=== PATIENT | male | born 1955 ===

== ENCOUNTER 2016-11-06 19:42 | Inpatient (IN) | payer BC ==
[~2016-11-06] VITALS: Ht 195.6 cm; Wt 100.2 kg
[~2016-11-06 19:42] MED LIST: ALFUZOSIN HCL10 MG PO; BUPROPION XL300 MG ORAL; FLONASE ALLERG9.9 ML NS; LEVOTHYROXINE25 MCG ORAL; MODAFINIL100 MG ORAL; SINGULAIR10 MG ORAL; THEOPHYLLINE400 MG PO
[2016-11-06] MEDS ORDERED: Ipratropium 0.02% Inh Soln 2.5ml UD HHN ONE (19:45)
[2016-11-06] MEDS ORDERED: Solu-MEDROL 125mg Inj IVP ONE (19:45)
[2016-11-06] MEDS ORDERED: Morphine Sulfate 4mg/ml Inj IVP ONE ×2 (19:45→21:00)
[2016-11-06] MEDS ORDERED: Albuterol ud Inhalation HHN ONE (19:45)
[2016-11-06] MEDS ORDERED: Azithromycin 500 MG in NS 250 ML IV ONE (19:45)
[2016-11-06] MEDS ORDERED: Azithromycin Inj IV ONE (19:51)
[2016-11-06] MEDS ORDERED: NS 50 ML IV ONE (19:52)
[2016-11-06] MEDS ORDERED: NS 250 ML ONE (19:52)
[2016-11-06 20:06] LABS: BASOPHILS % (AUTO) 0.4 % (0.0-2.0); EOSINOPHILS % (AUTO) 2.1 % (0.0-3.0); LYMPHOCYTES % (AUTO) 16.7 % (20.0-45.0); MEAN CORPUSCULAR HEMOGLOBIN 32.5 PG (27.0-31.0); MEAN CORPUSCULAR HGB CONC 33.1 G/DL (32.0-36.0); MEAN CORPUSCULAR VOLUME 98 FL (80-99); MEAN PLATELET VOLUME 6.3 FL (6.5-10.1); MONOCYTES % (AUTO) 11.9 % (1.0-10.0); NEUTROPHILS % (AUTO) 68.9 % (45.0-75.0); PLATELET COUNT 199 K/UL (150-450); RED CELL DISTRIBUTION WIDTH 11.8 % (11.6-14.8); WHITE BLOOD COUNT 14.8 K/UL (4.8-10.8)
[2016-11-06 20:23] LABS: TROPONIN I < 0.30 ng/mL (<=0.30)
[2016-11-06 20:27] LABS: ALANINE AMINOTRANSFERASE 41 U/L (3-41); ALBUMIN/GLOBULIN RATIO 1.2 (1.0-2.7); ANION GAP 13 (5-15); ASPARTATE AMINO TRANSFERASE 48 U/L (5-40); CALCIUM 8.5 mg/dL (8.6-10.2); CARBON DIOXIDE 25 mEQ/L (20-30); CHLORIDE 101 mEQ/L (98-107); GLOMERULAR FILTRATION RATE > 60 mL/min (>60); HEMOLYSIS 6; POTASSIUM 4.1 mEQ/L (3.4-4.9); SODIUM 139 mEQ/L (135-145); TOTAL PROTEIN 6.4 g/dL (6.6-8.7)
--- NOTE | 2016-11-06 20:28 | Emergency Room Report ---
History of Present Illness General Chief Complaint: Chest Pain Source: Patient, EMS Present Illness HPI Patient presents with left-sided chest pain severe. Pleuritic. He's been coughing for several days and wheezing. History of asthma. Has also had fevers and chills. He denies any productive phlegm. He believes he strained his chest a few days ago. He does not smoke. He is a diabetic but does not have high blood pressure. He's never had pain like this before. He's been using his inhaler. This is not his worst attack. Pain 9-10/10, radiate to side and back, not to neck. No headache, dizziness, ear pain, NVD, dysuria. Sugars have been controlled. Allergies: Coded Allergies: DOXYCYCLINE (Verified Allergy, Unknown, 11/06/16) TETRACYCLINE (Unverified Allergy, Unknown, 11/06/16) Patient History Past Medical History: see triage record, asthma, other - H/O non-Hodgkin's lymphoma - 5 years ago Social History: Denies: smoking Reviewed Nursing Documentation: PMH: Agreed, PSxH: Agreed Nursing Documentation-PMH Hx Cardiac Problems: No Hx Asthma: Yes Hx Diabetes: Yes Hx Cancer: No Hx Gastrointestinal Problems: Yes History Of Psychiatric Problem: Yes - Depression Hx Neurological Problems: No Review of Systems All Other Systems: negative except mentioned in HPI Physical Exam Vital Signs Date Time Temp Pulse Resp B/P Pulse Ox O2 Delivery O2 Flow Rate FiO2 11/06/16 19:30 68 16 134/84 96 Room Air Sp02 EP Interpretation: reviewed, normal General Appearance: well appearing, GCS 15, mild distress Head: normocephalic, atraumatic Eyes: bilateral eye PERRL, bilateral eye normal inspection ENT: moist mucus membranes Neck: supple Respiratory: rales - L, wheezing, expiration Cardiovascular #1: regular rate, rhythm Cardiovascular #2: 2+ radial (R) Gastrointestinal: normal inspection, normal bowel sounds, non tender, no mass, non-distended Musculoskeletal: back normal, gait/station normal, normal range of motion Neurologic: alert, oriented x3 - grossly normal neuro Skin: normal inspection, warm/dry Medical Decision Making Diagnostic Impression: Primary Impression: Pneumonia Qualified Codes: J18.9 - Pneumonia, unspecified organism Additional Impression: Bronchospasm, acute ER Course The patient presents with left chest pain which is pleuritic fevers cough wheezing. Differential includes pneumonia, bronchitis, asthma or pleurisy, PE amongst others. The patient needs emergent evaluation when EKG, chest x-ray, labs. The patient will be treated with IV hydration and and analgesia. Also he 'll get breathing treatments and also antibiotics. Due to the pleuritic nature of the chest pain a d-dimer be obtained. D-dimer was positive. CT angiogram was ordered. Chest x-ray was remarkable for left-sided infiltrate and effusion. The patient was improved with breathing treatments and treatment for pain. CTA - no PE. Patient improved but needs admission for IV antibiotics and bronchodilators. Admitted med Dr. Porras. Labs Test 11/06/16 19:45 11/06/16 21:55 White Blood Count 14.8 K/UL (4.8-10.8) Red Blood Count 4.60 M/UL (4.70-6.10) Hemoglobin 15.0 G/DL (14.2-18.0) Hematocrit 45.2 % (42.0-52.0) Mean Corpuscular Volume 98 FL (80-99) Mean Corpuscular Hemoglobin 32.5 PG (27.0-31.0) Mean Corpuscular Hemoglobin Concent 33.1 G/DL (32.0-36.0) Red Cell Distribution Width 11.8 % (11.6-14.8) Platelet Count 199 K/UL (150-450) Mean Platelet Volume 6.3 FL (6.5-10.1) Neutrophils (%) (Auto) 68.9 % (45.0-75.0) Lymphocytes (%) (Auto) 16.7 % (20.0-45.0) Monocytes (%) (Auto) 11.9 % (1.0-10.0) Eosinophils (%) (Auto) 2.1 % (0.0-3.0) Basophils (%) (Auto) 0.4 % (0.0-2.0) Prothrombin Time 10.0 SEC (9.30-11.50) Prothromb Time International Ratio 1.0 (0.9-1.1) Activated Partial Thromboplast Time 31 SEC (23-33) D-Dimer 1098 ng/mL (<500) Sodium Level 139 mEQ/L (135-145) Potassium Level 4.1 mEQ/L (3.4-4.9) Chloride Level 101 mEQ/L (98-107) Carbon Dioxide Level 25 mEQ/L (20-30) Anion Gap 13 (5-15) Blood Urea Nitrogen 15 mg/dL (7-23) Creatinine 1.0 mg/dL (0.7-1.2) Estimat Glomerular Filtration Rate > 60 mL/min (>60) Glucose Level 123 mg/dL (74-106) Lactic Acid Level 1.70 mmol/L (0.66-2.22) Calcium Level 8.5 mg/dL (8.6-10.2) Total Bilirubin 0.4 mg/dL (0.0-1.2) Aspartate Amino Transf (AST/SGOT) 48 U/L (5-40) Alanine Aminotransferase (ALT/SGPT) 41 U/L (3-41) Alkaline Phosphatase 56 U/L (40-129) Total Creatine Kinase 482 U/L (38-174) Troponin I < 0.30 ng/mL (<=0.30) Pro-B-Type Natriuretic Peptide 380 pg/mL (0-125) Total Protein 6.4 g/dL (6.6-8.7) Albumin 3.6 g/dL (3.5-5.2) Globulin 2.8 g/dL Albumin/Globulin Ratio 1.2 (1.0-2.7) Urine Color Yellow Urine Appearance Clear Urine pH 5 (4.5-8.0) Urine Specific [place] 1.015 (1.005-1.035) Urine Protein 2+ (NEGATIVE) Urine Glucose (UA) 2+ (NEGATIVE) Urine Ketones Negative (NEGATIVE) Urine Occult Blood 1+ (NEGATIVE) Urine Nitrite Negative (NEGATIVE) Urine Bilirubin Negative (NEGATIVE) Urine Urobilinogen Normal MG/DL (0.0-1.0) Urine Leukocyte Esterase 1+ (NEGATIVE) Urine RBC 2-4 /HPF (0 - 0) Urine WBC 2-4 /HPF (0 - 0) Urine Squamous Epithelial Cells None /LPF (NONE/OCC) Urine Bacteria Few /HPF (NONE) EKG Diagnostic Results Rate: normal Rhythm: NSR ST Segments: no acute changes Rhythm Strip Diag. Results EP Interpretation: yes Rhythm: NSR, no PVC's, no ectopy Chest X-Ray Diagnostic Results EP Interpretation: Yes Findings: other - LLL infiltrate and effusion Number of Views: 2 CT/MRI/US Diagnostic Results CT/MRI/US Diagnostic Results : Imaging Test Ordered: CTA lungs Impression No PE, infiltrate L with small effusion Impression: Limited exam due to suboptimal opacification of the pulmonary arteries. No definite large vessel pulmonary embolus, but small peripheral blood cannot be confidently ruled out Nonspecific parenchymal consolidation in the left lung base, possibly representing pneumonia Bilateral basilar atelectatic changes and mild bronchial wall thickening and minimal bronchiectasis Small to moderate left-sided pleural effusion Incidental finding of minimal bilateral gynecomastia Last Vital Signs Date Time Temp Pulse Resp B/P Pulse Ox O2 Delivery O2 Flow Rate FiO2 11/06/16 20:14 78 23 100 Room Air 11/06/16 19:30 134/84 Status: improved Disposition: ADMITTED INPATIENT Condition: Serious Buzz Beasley M.D. Nov 06, 2016 20:28
[2016-11-06 20:30] VITALS: BP 117/76
[2016-11-06 22:21] VITALS: BP 122/69
[2016-11-06] MEDS ORDERED: PSEUDOEPHEDRINE30 MG PO (22:23)
[2016-11-06] MEDS ORDERED: MUCINEX100 MG PO (22:23)
[2016-11-06] MEDS ORDERED: LORATADINE10 M2 PO (22:24)
[2016-11-06] MEDS ORDERED: ALBUTEROL2.5 MG/3 M INH (22:24)
[2016-11-06] MEDS ORDERED: ADVAIR 100-501 EACH INH (22:25)
[2016-11-06] MEDS ORDERED: PRILOSEC OTC20 MG ORAL (22:25)
[2016-11-06 22:33] LABS: APPEARANCE,URINE CLEAR; KETONES,URINE NEGATIVE (NEGATIVE); LEUKOCYTE ESTERASE ,URINE 1+ (NEGATIVE); NITRITE,URINE NEGATIVE (NEGATIVE); PH,URINE 5 (4.5-8.0); PROTEIN,URINE 2+ (NEGATIVE); UROBILINOGEN,URINE NORMAL MG/DL (0.0-1.0)
[2016-11-06 22:43] LABS: BACTERIA,URINE FEW /HPF
[2016-11-07] VITALS (7 sets, daily range): BP systolic 113–138; BP diastolic 63–87
[2016-11-07] MEDS ORDERED: Morphine Sulfate 4mg/ml Inj IVP ONE (01:00)
[2016-11-07] MEDS ORDERED: DuoNeb 0.5-3(2.5)mg/3ml neb HHN PRN (02:45)
[2016-11-07] MEDS: DuoNeb 0.5-3(2.5)mg/3ml neb HHN SCH ×6 (03:24→23:24)
[2016-11-07] MEDS: Morphine Sulfate 4mg/ml Inj IVP PRN ×7 (04:32→23:45)
[2016-11-07] MEDS: Solu-MEDROL 40mg Inj IVP SCH ×3 (06:44→21:31)
[2016-11-07] MEDS ORDERED: Levothyroxine 25mcg tab ORAL SCH ×2 (09:00)
[2016-11-07] MEDS ORDERED: Modafinil 100mg tab ORAL SCH (09:00)
--- NOTE | 2016-11-07 09:00 | Diagnostic Imaging Report ---
ndication: Chest pain and elevated d-dimer Technique: IV administration nonionic contrast. Spiral acquisitions obtained from the lung bases to the lung apices. Multiplanar and 3-D reconstructions were generated. Total dose length product 900 mGycm. CTDIvol(s) 12, 63, 25 mGy Comparison: None Findings: Pulmonary arterial perfusion is suboptimal, precluding exclusion of small distal pulmonary emboli. No gross large vessel central pulmonary emboli are evident. No evidence of thoracic aortic aneurysm or dissection. No pulmonary arterial dilatation or right ventricular dilatation is evident. There is a small to moderate size left-sided pleural effusion. There resulting compressive atelectatic changes of the left lower lobe. There are posterior dependent atelectatic changes of the right lower lobe. There is bronchial wall thickening and mild bronchiectasis at the right lung base. There is some nonspecific parenchymal consolidation at the left lung base. The upper lobes and right middle lobe are clear. No mediastinal or hilar mass or adenopathy. The heart size is normal. No pericardial effusion. No axillary or chest wall mass or adenopathy. Bones are unremarkable. There is mild bilateral gynecomastia The included upper abdominal viscera are unremarkable. Impression: Limited exam due to suboptimal opacification of the pulmonary arteries. No definite large vessel pulmonary embolus, but small peripheral blood cannot be confidently ruled out Nonspecific parenchymal consolidation in the left lung base, possibly representing pneumonia Bilateral basilar atelectatic changes and mild bronchial wall thickening and minimal bronchiectasis Small to moderate left-sided pleural effusion Incidental finding of minimal bilateral gynecomastia The CT scanner at [facility] is accredited by the [employer] and the scans are performed using protocols designed to limit radiation exposure to as low as reasonably achievable to attain images of sufficient resolution adequate for diagnostic evaluation.
[2016-11-07] MEDS: Advair 100/50 Inhaler - 14 dose INH SCH ×2 (09:18→19:31)
[2016-11-07] MEDS: Levofloxacin 500mg tab ORAL SCH (09:20)
[2016-11-07] MEDS: Montelukast 10mg tablet ORAL SCH (09:20)
[2016-11-07] MEDS: BuPROPion XL 300mg tab ORAL SCH (09:20)
[2016-11-07] MEDS: Heparin 5000 units/ml inj SUBQ SCH ×2 (09:21→20:32)
--- NOTE | 2016-11-07 10:12 | Diagnostic Imaging Report ---
Indication: COUGH and chest pain Technique: One view of the chest Comparison: none Findings: History is suboptimal, with crowding of vascular markings and left basilar atelectatic changes.. There is suggestion of at least mild interstitial congestion. Left costophrenic angle is blunted, possibly reflecting basilar atelectasis and/or a small amount of pleural fluid the heart size is normal Impression: Small left pleural effusion Mild congestive changes Hypoventilatory exam with bibasilar atelectasis. This agrees with the preliminary interpretation provided by the emergency room physician
[2016-11-07] MEDS: Flonase Nasal Inhaler 16gm NASAL SCH ×2 (10:35→17:15)
[2016-11-07] MEDS: cefTRIAXone 1 GM in D5W 50 ML IVPB SCH (20:30)
[2016-11-08] VITALS: BP 139/84
[2016-11-08] MEDS: DuoNeb 0.5-3(2.5)mg/3ml neb HHN SCH ×6 (03:57→23:04)
[2016-11-08 04:00] VITALS: BP 106/57
[2016-11-08] MEDS: Solu-MEDROL 40mg Inj IVP SCH ×3 (06:12→21:41)
[2016-11-08] MEDS: Levothyroxine 125mcg tab ORAL SCH (06:12)
[2016-11-08] MEDS: Morphine Sulfate 4mg/ml Inj IVP PRN ×3 (06:20→21:42)
[2016-11-08 08:00] VITALS: BP 134/78
[2016-11-08] MEDS: Advair 100/50 Inhaler - 14 dose INH SCH ×2 (09:14→21:09)
[2016-11-08] MEDS: Levofloxacin 500mg tab ORAL SCH (09:55)
[2016-11-08] MEDS: BuPROPion XL 300mg tab ORAL SCH (09:55)
[2016-11-08] MEDS: Heparin 5000 units/ml inj SUBQ SCH ×2 (10:03→20:35)
[2016-11-08] MEDS: Montelukast 10mg tablet ORAL SCH (10:05)
[2016-11-08] MEDS: Flonase Nasal Inhaler 16gm NASAL SCH ×2 (10:06→17:25)
--- NOTE | 2016-11-08 10:37 | General Progress Note ---
Assessment/Plan Assessment/Plan pneumonia pleuritic pain low thyroid PLAN care noted follow up chest XR oxygen follow up for change Subjective Allergies: Coded Allergies: DOXYCYCLINE (Verified Allergy, Unknown, 11/06/16) TETRACYCLINE (Unverified Allergy, Unknown, 11/06/16) Subjective comfortable minimal congestion Objective Last 24 Hour Vital Signs Date Time Temp Pulse Resp B/P Pulse Ox O2 Delivery O2 Flow Rate FiO2 11/08/16 07:56 95 Room Air 11/08/16 07:56 82 16 98 Room Air 11/08/16 07:56 Room Air 11/08/16 07:56 82 14 98 Room Air 11/08/16 04:00 76 11/08/16 04:00 97.5 79 18 106/57 92 Room Air 11/08/16 03:10 85 17 100 Nasal Cannula 2.0 28 11/08/16 03:00 79 16 96 Nasal Cannula 2.0 28 11/08/16 00:00 100 11/08/16 00:00 98.1 85 18 139/84 97 Nasal Cannula 2.0 11/07/16 23:33 87 17 100 Nasal Cannula 2.0 28 11/07/16 23:24 86 17 95 Nasal Cannula 2.0 28 11/07/16 20:00 97.9 102 21 123/72 95 Nasal Cannula 3.0 11/07/16 20:00 88 11/07/16 20:00 97.1 82 21 127/74 92 Nasal Cannula 3.0 11/07/16 19:40 81 18 100 Nasal Cannula 2.0 28 11/07/16 19:30 80 17 96 Nasal Cannula 2.0 28 11/07/16 19:29 96 Nasal Cannula 2.0 11/07/16 19:29 Nasal Cannula 2.0 28 11/07/16 16:00 82 11/07/16 16:00 97.7 87 18 138/87 93 Room Air 11/07/16 15:49 83 18 100 Nasal Cannula 2.0 28 11/07/16 15:40 80 16 94 Room Air 21 11/07/16 12:22 97.2 93 18 123/72 95 Nasal Cannula 2.0 11/07/16 12:00 101 11/07/16 11:30 78 18 100 Nasal Cannula 2.0 28 11/07/16 11:20 72 18 98 Nasal Cannula 2.0 28 Intake and Output 11/07/16 11/08/16 19:00 07:00 Intake Total 480 ml 340 ml Balance 480 ml 340 ml Intake Oral 480 ml 240 ml IV Total 100 ml # Voids 2 2 Labs Test 11/06/16 19:45 11/06/16 21:55 White Blood Count 14.8 K/UL (4.8-10.8) Red Blood Count 4.60 M/UL (4.70-6.10) Hemoglobin 15.0 G/DL (14.2-18.0) Hematocrit 45.2 % (42.0-52.0) Mean Corpuscular Volume 98 FL (80-99) Mean Corpuscular Hemoglobin 32.5 PG (27.0-31.0) Mean Corpuscular Hemoglobin Concent 33.1 G/DL (32.0-36.0) Red Cell Distribution Width 11.8 % (11.6-14.8) Platelet Count 199 K/UL (150-450) Mean Platelet Volume 6.3 FL (6.5-10.1) Neutrophils (%) (Auto) 68.9 % (45.0-75.0) Lymphocytes (%) (Auto) 16.7 % (20.0-45.0) Monocytes (%) (Auto) 11.9 % (1.0-10.0) Eosinophils (%) (Auto) 2.1 % (0.0-3.0) Basophils (%) (Auto) 0.4 % (0.0-2.0) Prothrombin Time 10.0 SEC (9.30-11.50) Prothromb Time International Ratio 1.0 (0.9-1.1) Activated Partial Thromboplast Time 31 SEC (23-33) D-Dimer 1098 ng/mL (<500) Sodium Level 139 mEQ/L (135-145) Potassium Level 4.1 mEQ/L (3.4-4.9) Chloride Level 101 mEQ/L (98-107) Carbon Dioxide Level 25 mEQ/L (20-30) Anion Gap 13 (5-15) Blood Urea Nitrogen 15 mg/dL (7-23) Creatinine 1.0 mg/dL (0.7-1.2) Estimat Glomerular Filtration Rate > 60 mL/min (>60) Glucose Level 123 mg/dL (74-106) Lactic Acid Level 1.70 mmol/L (0.66-2.22) Calcium Level 8.5 mg/dL (8.6-10.2) Total Bilirubin 0.4 mg/dL (0.0-1.2) Aspartate Amino Transf (AST/SGOT) 48 U/L (5-40) Alanine Aminotransferase (ALT/SGPT) 41 U/L (3-41) Alkaline Phosphatase 56 U/L (40-129) Total Creatine Kinase 482 U/L (38-174) Troponin I < 0.30 ng/mL (<=0.30) Pro-B-Type Natriuretic Peptide 380 pg/mL (0-125) Total Protein 6.4 g/dL (6.6-8.7) Albumin 3.6 g/dL (3.5-5.2) Globulin 2.8 g/dL Albumin/Globulin Ratio 1.2 (1.0-2.7) Urine Color Yellow Urine Appearance Clear Urine pH 5 (4.5-8.0) Urine Specific [place] 1.015 (1.005-1.035) Urine Protein 2+ (NEGATIVE) Urine Glucose (UA) 2+ (NEGATIVE) Urine Ketones Negative (NEGATIVE) Urine Occult Blood 1+ (NEGATIVE) Urine Nitrite Negative (NEGATIVE) Urine Bilirubin Negative (NEGATIVE) Urine Urobilinogen Normal MG/DL (0.0-1.0) Urine Leukocyte Esterase 1+ (NEGATIVE) Urine RBC 2-4 /HPF (0 - 0) Urine WBC 2-4 /HPF (0 - 0) Urine Squamous Epithelial Cells None /LPF (NONE/OCC) Urine Bacteria Few /HPF (NONE) Height (Feet): 6 Height (Inches): 5.00 Weight (Pounds): 221 Objective WDWN NAD some rhonchi [id number] without MRG NABS nontender no HSM no CCE nonfocal RONALD OWENS Nov 08, 2016 10:37
[2016-11-08 12:00] VITALS: BP 139/84
[2016-11-08] MEDS: Docusate 100mg tablet NG SCH ×2 (14:16→14:17)
--- NOTE | 2016-11-08 15:07 | History and Physical Report ---
DATE OF ADMISSION: 11/06/2016 REASON FOR ADMISSION: Pneumonia. HISTORY OF PRESENT ILLNESS: This is a 61-year-old male with no known history of asthma. The patient complained of left-sided chest pain, pleuritic. He also has cough. The patient has sputum production. The patient has no fever or chills. Denies any ill contacts. Denies any recent travel. The patient presented to the emergency room and did undergone CT of the chest reveal pulmonary embolism, which was negative, but did have evidence of pneumonia. The patient is now admitted for further care and management. PAST MEDICAL HISTORY: The patient past medical history is notable for 1. Benign prostatic hyperplasia. 2. History of non-Hodgkin's lymphoma. 3. History of asthma. 4. History of chronic rhinitis. 5. History of depression. 6. History of hypothyroidism. MEDICATIONS: Reviewed and reconciled. ALLERGIES: Reviewed. SOCIAL HISTORY: Nonsmoker. Nondrinker. REVIEW OF SYSTEMS: Otherwise negative. PHYSICAL EXAMINATION: GENERAL: A well-developed male, comfortable at present. VITAL SIGNS: Stable and afebrile. The patient has saturation at two liters. LUNGS: With crackles over the left base otherwise clear. CARDIAC: S1 and S2. Regular rate and rhythm. ABDOMEN: Soft, nontender, and nondistended. EXTREMITIES: No cyanosis, clubbing, or edema. LABORATORY AND DIAGNOSTIC DATA: Chemistry is negative except for CK of 42. BNP 380. IMPRESSION: 1. Pneumonia, left-sided with pneumonic effusion. 2. History of chest pain. 3. Hypothyroidism. 4. Asthma. RECOMMENDATION: Resume home medications of theophylline and Solu-Medrol. Possible GI symptoms. Resume all other medication, IV antibiotics, and IV Rocephin. We will obtain ID evaluation. Levaquin. Follow x-ray to clearance and discharge home in stable condition. Dm Porras M.D. DR: MCKAY JOB#: [id number] CC: DIEUDONNE
[2016-11-08 16:00] VITALS: BP 133/86
[2016-11-08] MEDS ORDERED: NS 275ml ONE (17:56)
[2016-11-08] MEDS ORDERED: Tubing IV Secondary IV ONE (17:56)
[2016-11-08 20:00] VITALS: BP 130/71
[2016-11-08] MEDS: cefTRIAXone 1 GM in D5W 50 ML IVPB SCH (20:33)
[2016-11-09] VITALS: BP 121/90
[2016-11-09] MEDS: DuoNeb 0.5-3(2.5)mg/3ml neb HHN SCH ×2 (03:15→07:42)
[2016-11-09 04:00] VITALS: BP 129/79
[2016-11-09] MEDS: Levothyroxine 125mcg tab ORAL SCH (06:28)
[2016-11-09] MEDS: Solu-MEDROL 40mg Inj IVP SCH (06:28)
[2016-11-09 08:44] VITALS: BP 126/76
--- NOTE | 2016-11-09 08:51 | General Progress Note ---
Assessment/Plan Assessment/Plan pneumonia pleuritic pain low thyroid PLAN care noted follow up chest XR with some improvement dc home with bactrim and azithro outpatient follow up chest xr and clinical evaluation patient aware to return if symptoms worsen patient aware of need for close follow up and avoidance of ill contacts follow up for change Subjective Allergies: Coded Allergies: DOXYCYCLINE (Verified Allergy, Unknown, 11/06/16) TETRACYCLINE (Unverified Allergy, Unknown, 11/06/16) Subjective comfortable anxious to go home Objective Last 24 Hour Vital Signs Date Time Temp Pulse Resp B/P Pulse Ox O2 Delivery O2 Flow Rate FiO2 11/09/16 08:44 97.5 73 18 126/76 94 Room Air 11/09/16 07:45 72 18 96 Room Air 21 11/09/16 07:45 21 11/09/16 07:44 Room Air 21 11/09/16 07:44 96 Room Air 21 11/09/16 04:00 89 11/09/16 04:00 97.2 93 20 129/79 92 Room Air 11/09/16 03:24 82 12 100 Room Air 21 11/09/16 03:15 75 12 98 Room Air 11/09/16 00:00 97.7 98 20 121/90 94 Room Air 11/09/16 00:00 106 11/08/16 23:15 99 14 99 Room Air 21 11/08/16 23:05 91 14 96 Room Air 11/08/16 20:00 97.5 86 27 130/71 96 Room Air 11/08/16 20:00 85 11/08/16 19:36 88 14 100 Room Air 21 11/08/16 19:29 97 Room Air 21 11/08/16 19:29 Room Air 21 11/08/16 19:29 81 14 97 Room Air 11/08/16 16:00 97.5 91 18 133/86 91 11/08/16 16:00 87 11/08/16 15:24 88 16 98 Room Air 21 11/08/16 15:24 83 16 98 Room Air 11/08/16 14:51 97.2 11/08/16 12:40 80 11/08/16 12:00 97.2 84 19 139/84 84 11/08/16 11:36 80 15 97 Room Air 11/08/16 11:36 84 16 98 Room Air 21 Intake and Output 11/08/16 11/09/16 19:00 07:00 Intake Total 500 ml 940 ml Balance 500 ml 940 ml Intake Oral 500 ml 840 ml IV Total 100 ml # Voids 3 5 # Bowel Movements 1 Height (Feet): 6 Height (Inches): 5.00 Weight (Pounds): 221 Objective WDWN NAD some rhonchi overall improved [id number] without MRG NABS nontender no HSM no CCE nonfocal RONALD OWENS Nov 09, 2016 08:51
[2016-11-09] MEDS: Advair 100/50 Inhaler - 14 dose INH SCH (09:18)
[2016-11-09] MEDS: BuPROPion XL 300mg tab ORAL SCH (09:30)
[2016-11-09] MEDS: Flonase Nasal Inhaler 16gm NASAL SCH (09:35)
[2016-11-09] MEDS: Montelukast 10mg tablet ORAL SCH (09:36)
[2016-11-09] MEDS: Levofloxacin 500mg tab ORAL SCH (09:36)
[2016-11-09] MEDS: Docusate 100mg tablet NG SCH (09:36)
[2016-11-09] MEDS: Heparin 5000 units/ml inj SUBQ SCH (09:39)
--- NOTE | 2016-11-09 11:01 | Cardiology Report ---
APPROVED REPORT EKG Measurement Heart [id number] MN 136P2 [id number] Normal sinus rhythm Normal ECG
--- NOTE | 2016-11-09 11:47 | Consultation ---
DATE OF CONSULTATION: 11/09/2016 INFECTIOUS DISEASES CONSULTATION CONSULTING PHYSICIAN: Buddy Anguiano M.D. ATTENDING PHYSICIAN: Dm Porras M.D. REFERRING PHYSICIAN: Dm Porras M.D. REASON FOR CONSULTATION: Pneumonia. HISTORY OF PRESENTING ILLNESS: This is a very pleasant 61-year-old gentleman with history of benign prostatic hypertrophy, non-Hodgkin's lymphoma of the thyroid, and asthma, who came in with fever and chills, cough with productive sputum along with some shortness of breath and pain in his chest and in the ribs. He found to have a pneumonia and an Infectious Diseases consultation has been obtained for antibiotics. PAST MEDICAL HISTORY: 1. History of benign prostatic hyperplasia. 2. Non-Hodgkin's lymphoma of the thyroid, status post chemotherapy in remission. 3. Asthma. 4. Chronic rhinitis. 5. Depression. 6. Hypothyroidism. 7. History of hernia surgery. 8. History of abdominal plasty. 9. History of foot surgery. MEDICATIONS: Medications as an inpatient, he is on docusate, levothyroxine, ceftriaxone, Flonase, subcutaneous heparin, Levaquin, Wellbutrin, fluticasone, Singulair, Protonix, Solu-Medrol, albuterol, morphine, and Zofran. ALLERGIES: Allergies to tetracycline and doxycycline noted. SOCIAL HISTORY: He used to be a smoker. He does not smoke anymore. No history of alcohol or drug use. FAMILY HISTORY: Positive for heart problems in his father. REVIEW OF SYSTEMS: Respiratory: He had fever and chills, which is improved. He had a cough with some mucus. He has shortness of breath. He has pleuritic chest pain. Cardiac: No chest pain. No palpitations. No dizziness. No syncope. Gastrointestinal: He does have some nausea now. No vomiting, no abdominal pain or diarrhea. PHYSICAL EXAMINATION: VITAL SIGNS: Temperature of 97.5 degrees, T-max of 98.1 degrees, pulse of 72, respiratory of 19, blood pressure of 126/76, and O2 saturation of 96%. HEENT: Pupils are equally reactive to light and accommodation. Mouth appears clean without thrush. NECK: Supple. No adenopathy. No JVD. CARDIOVASCULAR: Regular rate and rhythm. No murmurs. LUNGS: Wheezing noted bilaterally. ABDOMEN: Soft and nontender. No organomegaly. EXTREMITIES: No cyanosis, no clubbing, no edema. LABORATORY DATA: White count 14.8 hemoglobin 15, hematocrit 35.2, MCV 98, platelet count of 199,000, and neutrophils of 68%. Sodium 139, potassium 4.1, chloride 101, bicarbonate 25, BUN 15, creatinine 1, glucose 123, and calcium 8.5. Total bilirubin 0.4. AST 48, ALT 41, and alkaline phosphatase 56. CK of 482. Troponin less than 0.3. Total protein 6.4. Albumin 3.6. UA showing 2-4 white cells. Sputum culture growing Staph aureus and normal respiratory mi. Influenza A on 11/06/2016 was negative. Blood cultures are negative from 11/06/2016. Chest x-ray showed small left-sided pleural effusion, mild congestion noted, bibasilar atelectasis noted. CT chest showing nonspecific parenchymal consolidation in the left lung base probably representing pneumonia, atelectasis and mild bronchial wall thickening and bronchiectasis noted small to moderate left-sided pleural effusion noted. ASSESSMENT: 1. This is a 61-year-old gentleman with history of asthma and non-Hodgkin's lymphoma of the thyroid, who comes in with a pneumonia with Staph aureus. 2. History of asthma. 3. Leukocytosis. PLAN: 1. Continue ceftriaxone. 2. Discontinue Levaquin. 3. We will start IV vancomycin. 4. We will follow up cultures and adjust antibiotics accordingly. I would like to thank, Dr. Porras for this consultation. Buddy Anguiano M.D. DR: Rodolfo JOB#: [id number] CC: Dm Porras M.D.; Fax#: [phone]
[2016-11-09 12:15] VITALS: BP 117/69
[2016-11-09] MEDS ORDERED: Vancomycin 1.5 GM in D5W 300 ML IVPB ONE (13:00)
[2016-11-09] MEDS ORDERED: Vancomycin 1gm/D5W 250ml IVPB SCH ×2 (22:00)
--- NOTE | 2016-11-11 10:49 | Discharge Summary ---
Discharge Summary Hospital Course Date of Admission Nov 06, 2016 at 21:29 Date of Discharge Nov 09, 2016 at 12:38 Admitting Diagnosis pneumonia HPI Odilon Oconnor is a 61 year old male who was admitted on Nov 06, 2016 at 21: 29 for Pneumonia Hospital Course [id number] Discharge Discharge Disposition Patient was discharged to Home (01) Discharge Diagnoses: Trisha Man NP Nov 11, 2016 10:48
--- NOTE | 2016-11-12 00:17 | Discharge Summary 2 SIG ---
DATE OF ADMISSION: 11/06/2016 DATE OF DISCHARGE: 11/09/2016 CONSULTANTS: Buddy Anguiano M.D. BRIEF HOSPITAL COURSE: The patient is a 61-year-old male with no known history of asthma and complained of left-sided chest pain, which was pleuritic and has sputum production. CAT scan of the chest was negative for pulmonary embolism, but with findings of pneumonia. Dr. Anguiano was consulted. The patient had leukocytosis. Sputum culture showed growth of Staph aureus and normal respiratory mi. Influenza A was negative. Blood culture was negative. Chest x-ray showed basilar atelectasis. Antibiotics were adjusted. Followup chest x-ray showed some improvement. He was discharged home with Bactrim and azithromycin and recommended outpatient followup with chest x-ray and clinical evaluation. He was advised to return if symptoms worsen and was made aware of the need for close followup and avoidance of ill contacts. He was eventually discharged home. FINAL DIAGNOSES: 1. Pneumonia. 2. Pleuritic pain. 3. Hypothyroid. Dm Porras M.D. I have been assigned to dictate discharge summary on this account and I was not involved in the patient's management. Trisha Man N.P. DR: KRISH JOB#: [id number] CC:
--- NOTE | 2016-11-14 10:29 | Diagnostic Imaging Report ---
Indication: Chest pain Technique: One view of the chest Comparison: 11/06/2016 Findings: There is a left-sided pleural effusion again demonstrated. Is apparent decreased interstitial congestion, although this may be an artifact of under exposure to the current exam. There is some atelectasis at the right lung base. Heart size is upper limits normal Impression: Stable left-sided pleural effusion Equivocal improved mild interstitial congestion-correlate with clinical findings
--- NOTE | 2016-11-14 10:30 | Diagnostic Imaging Report ---
Indication: Dyspnea Comparison: 11/07/16 A single view chest radiograph was obtained. Findings: Atelectasis suspected at the left lung base, stable in appearance. The bones are slightly osteopenic. Heart size is stable and within normal limits. Impression: Suspected left basilar atelectasis. Small pleural effusion may be present.
== END 2016-11-09 12:38 | disposition home or self-care (01) | DRG 179 ==
LOC: EDBD 19:42 → EMR 20:32 → 2E 21:29 → EDBEDREQSVC 22:24 → EDBEDREQ 22:24 → EDBEDREQSVC 22:43 → EDBEDREQ 11-07 01:16
DX: J15.211 Pneumonia due to Methicillin susceptible Staphylococcus aureus (principal); E03.9 Hypothyroidism, unspecified; R07.81 Pleurodynia; Z85.72 Personal history of non-Hodgkin lymphomas; J45.909 Unspecified asthma, uncomplicated; D72.829 Elevated white blood cell count, unspecified; N40.0 Benign prostatic hyperplasia without lower urinary tract symptoms; Z87.891 Personal history of nicotine dependence
CPT/HCPCS: 36415; 71010; 71275; 80053; 81003; 82550; 83605; 83880; 84484; 85025; 85379; 85610; 85730; 86710; 87040; 87070; 87181; 87205; 93005; 94640; 94664; 94760; J2405; J7620